=== PATIENT | female | born 1980 | race Two or more races ===

== ENCOUNTER 2020-09-15 20:14 | Inpatient (IN) | payer SELFPAY ==
[2020-09-15] MEDS ORDERED: SODIUM CHLORIDE 0.9% 500 ML INFUS.BAG IV ONE (20:29)
[2020-09-15 21:48] LABS: BASO % 0.1 % (0-2.0); HEMATOCRIT 42.2 % (32.4-45.2); HEMOGLOBIN 14.1 GM/dL (10.7-15.3); LYMPH % 8.8 % (8-40); MCH 31.3 pg (25.7-33.7); MCHC 33.4 g/dl (32.0-36.0); MEAN CELL VOLUME 93.9 fl (80-96); MEAN PLT VOLUME 8.3 fl (7.5-11.1); MONO % 3.2 % (3.8-10.2); NEUT % 87.9 % (42.8-82.8); PLATELET COUNT 263 10^3/uL (134-434); RBC 4.49 M/mm3 (3.60-5.2); RDW 12.8 % (11.6-15.6); WHITE BLOOD COUNT 13.9 K/mm3 (4.0-10.0)
[2020-09-15] MEDS ORDERED: morphine CARPU-JECT 4 MG/1 ML DISP.SYRIN IVPUSH ONE ×2 (21:52→23:48)
[2020-09-15] MEDS ORDERED: morphine SULFATE 4 MG/ML VIAL IVPUSH ONE ×2 (21:52→23:48)
[2020-09-15] MEDS ORDERED: METOCLOPRAMIDE HCL INJECTION 10 MG/2 ML VIAL IVPB ONE (21:52)
[2020-09-15] MEDS ORDERED: PANTOPRAZOLE SODIUM 40 MG VIAL IVPUSH ONE (21:53)
[2020-09-15 21:55] LABS: PROTHROMBIN TIME (PATIENT) 12.1 SEC (9.7-13.0)
[2020-09-15] MEDS ORDERED: PANTOPRAZOLE SODIUM 40 MG/100 ML BAG IVPB ONE (22:04)
[2020-09-15] MEDS ORDERED: morphine SULFATE 4 MG/ML VIAL ONE ×2 (22:04→23:55)
[2020-09-15 22:10] LABS: ALBUMIN 4.1 g/dl (3.4-5.0); CALCIUM 8.9 mg/dL (8.5-10.1)
[2020-09-15 22:14] LABS: CREATININE 0.7 mg/dL (0.55-1.3)
[2020-09-15 22:15] LABS: TOT PROT 7.9 g/dl (6.4-8.2)
[2020-09-15] MEDS ORDERED: MORPHINE SULFATE 2 MG/ML VIAL ONE (23:55)
[2020-09-16] MEDS ORDERED: morphine CARPU-JECT 4 MG/1 ML DISP.SYRIN IVPUSH ONE (01:01)
[2020-09-16] MEDS ORDERED: HYDROmorphone HCl 2 MG/ML VIAL IVPUSH ONE ×2 (01:04→04:40)
[2020-09-16] MEDS ORDERED: HYDROmorphone HCL CARPU-JECT 2 MG/1 ML DISP.SYRIN IVPUSH ONE (01:04)
[2020-09-16] MEDS ORDERED: HYDROmorphone HCl 2 MG/ML VIAL ONE (01:06)
[2020-09-16] MEDS ORDERED: DEXTROSE 5%-NORMAL SALINE 1,000 ML IV SCH (04:30)
[2020-09-16] MEDS ORDERED: METOCLOPRAMIDE HCL INJECTION 10 MG/2 ML VIAL IVPB SCH ×2 (04:30→11:28)
[2020-09-16] MEDS ORDERED: ONDANSETRON 4 MG/2 ML VIAL IVPUSH PRN (04:34)
[2020-09-16] MEDS ORDERED: morphine SULFATE 4 MG/ML VIAL IVPUSH ONE ×2 (04:40)
[2020-09-16] MEDS ORDERED: LACTATED RINGERS SOLUTION 1,000 ML IV SCH (04:45)
[2020-09-16] MEDS ORDERED: METOCLOPRAMIDE HCL INJECTION 10 MG/2 ML VIAL ONE (04:49)
[2020-09-16 05:38] VITALS: BMI 33.9
[2020-09-16] MEDS ORDERED: PANTOPRAZOLE SODIUM 40 MG VIAL IVPB SCH (10:00)
[2020-09-16] MEDS ORDERED: PANTOPRAZOLE SODIUM 40 MG in SODIUM CHLORIDE 100 ML IVPB SCH (10:00)
[2020-09-16 13:45] VITALS: BP 106/63; PULSE 89; TEMP 97.6
== END 2020-09-16 15:41 | disposition home or self-care (01) | DRG 222 ==
LOC: JER 20:14 → JERBED 21:54 → J8W 09-16 05:06
PROVIDERS: ADMIT Internal Medicine Gastroenterology; ATTEND Internal Medicine Gastroenterology
PROC: 0DP64CZ Removal of Extraluminal Device from Stomach, Percutaneous Endoscopic Approach (ICD-10-PCS; principal; 2020-09-16 02:01)
DX: K95.09 Other complications of gastric band procedure (principal); Y83.8 Other surgical procedures as the cause of abnormal reaction of the patient, or of later complication, without mention of misadventure at the time of the procedure; E66.8 Other obesity; Z68.33 Body mass index [BMI] 33.0-33.9, adult; R11.2 Nausea with vomiting, unspecified; R10.12 Left upper quadrant pain
CPT/HCPCS: 36415; 74176-TC; 80053; 84703; 85025; 85610; 86850; 86900; 86901; 94760; 99285-25; C9803; U0003; U0005